=== PATIENT | male | born 1950 | race African-American/Black ===

== ENCOUNTER 2020-04-28 14:05 | Emergency (ER) | payer MEDICARE, MEDICAID, SELFPAY ==
[~2020-04-28] VITALS: Ht 175.3 cm; Wt 77.1 kg
[2020-04-28 14:45] VITALS: BP_SYST 103
--- NOTE | 2020-04-28 14:45 | NUR ---
PT TRIAGED AND TO REMAIN IN TENT 3 FOR EVALUATION
--- NOTE | 2020-04-28 14:50 | NUR ---
CREPING MACHINE OPERATOR EILEEN CALLED PER PT REQUEST FOR AVAILABLE RESOURCES
--- NOTE | 2020-04-28 16:16 | NUR ---
Super[facility] Note/Homeless Patient referred to [facility] by ED RN Tasha as patient is homeless and needs halfway. Met with patient in the outside ED tent. Patient stated he needed to place to stay. He has been trying to get into the [facility] hotel but has been "blocked". These are rooms set up for Covid isolation. Will provide ED staff with the Quarantine and Isolation Intake Call Center contact information flyer and phone [phone]. I'm currently on hold with the year round halfway hotline [phone] to determine what they have available. Addendum: 04/28/20 at 1718 by Rabia James LCSW Unable to reach the halfway hot line. Will follow up in the am if patient is still here.
--- NOTE | 2020-04-28 18:30 | NUR ---
RAPID COVID SWAB OBTAINED AND SENT
--- NOTE | 2020-04-28 20:23 | NUR ---
SPOKE WITH DINAH AT [facility] AND COMPLETED INTAKE PROCESS. PT MUST WAIT TIL 8 AM FOR TRANSFER. CALL [facility] INTAKE C[facility] IN AM @ [phone] TO DETERMINE PLACEMENT AND COORDINATE WITH SITE MANAGERS AND EMS TRANSPORT. CALL EILEEN SCALE CLERK ALBERT GU AT EXT #[phone] TO ASSIST WITH TRANSFER. PACKET NEEDS TO BE FAXED WHEN NURSE MAKES CONTACT IN MORNING. FAX MUST INCLUDE V/S, D/C SUMMARY, H & P, PROGRESS NOTES, NURSING NOTES, AND COVID POSITIVE RESULT.
--- NOTE | 2020-04-28 20:23 | NUR ---
REFERENCE NUMBER FOR [facility] INTAKE COORDINATION #[id number]
--- NOTE | 2020-04-28 21:30 | NUR ---
PT PLACED IN ED BROWN TENT SINCE COVID POSITIVE VITAL SIGNS STABLE WILL CONTINUE TO MONITOR
--- NOTE | 2020-04-28 23:00 | NUR ---
PT RESTING QUIETLY IN BED VITAL SIGNS STABLE WILL CONTINUE TO MONITOR
[2020-04-29] MEDS ORDERED: COLCHICINE 0.6 MG TABLET ONE (00:17)
[2020-04-29] MEDS ORDERED: KETOROLAC TROMETHAMINE 60 MG/2 ML VIAL IM ONE (06:00)
--- NOTE | 2020-04-29 07:14 | NUR ---
BEDSIDE PT REPORT GIVEN TO ELECTROSLAG WELDING MACHINE OPERATORBETSY TITUS WHO WILL ASSUME CARE
--- NOTE | 2020-04-29 07:30 | NUR ---
Report received at this time, pt A&Ox,VSS , O2 95%, BS 77, breakfast ordered, afebrile, will cont to monitor.
--- NOTE | 2020-04-29 08:45 | NUR ---
Structural Rigger Note Spoke with ED. Patient is Covid positive and homeless. They phoned the Quarantine and Isolation Intake Call Center [phone] and received ticket #[id number]. Abby from the Intake Center called, . She will work to find a place for patient, with preference to the [facility] in [place]. Vital signs reported to Abby. No prescriptions. When transport needed, must be ambulance due to positive Covid status. Will call [facility] [place] [phone]. Addendum: 04/29/20 at 0923 by Rabia James LCSW Faxed patient's information to the [facility] intake in [place], . Left my cell number for contact. Addendum: 04/29/20 at 0940 by Rabia James LCSW Received a call from aPulina MEYER from [facility], . She stated they need lab results for patient. Phoned ED to request labs Addendum: 04/29/20 at 1144 by Rabia COATSW Paulina also requested O2 sat while ambulatory and chest x ray. Daina DEY alerted ED.
[2020-04-29 10:18] LABS: BASOPHILS % (AUTO) 0.7 % (0.0-2.0); HEMATOCRIT 42.6 % (36-54); HEMOGLOBIN 14.1 g/dL (14.0-18.0); LYMPHOCYTES % (AUTO) 23.6 % (20.5-51.5); MEAN CORPUSCULAR HEMOGLOBIN 27 pg (27-31); MEAN CORPUSCULAR HGB CONC 33 % (32-36); MEAN CORPUSCULAR VOLUME 82 fL (79.0-98.0); MONOCYTES # (AUTO) 0.5 K/uL (0.0-1.0); MONOCYTES % (AUTO) 10.6 % (1.7-9.3); NEUTROPHILS # (AUTO) 2.9 K/uL (1.8-7.7); NEUTROPHILS % (AUTO) 65.1 % (40.0-70.0); PLATELET COUNT (AUTO) 183 K/uL (130-430); RED CELL DISTRIBUTION WIDTH 14.7 % (9.0-15.0); WHITE BLOOD COUNT (AUTO) 4.4 K/uL (4.8-10.8)
[2020-04-29 10:36] LABS: CALCIUM 8.7 mg/dL (8.4-11.0); CREATININE 1.09 mg/dL (0.55-1.30); POTASSIUM 3.8 mmol/L (3.5-5.1)
--- NOTE | 2020-04-29 11:15 | NUR ---
Pt on stable condition, O2 95 %, respirations even and unlabored.
--- NOTE | 2020-04-29 11:35 | NUR ---
PT AMBULATED WITH SATS MAINTAINING AT 96%, PT ON ROOM AIR. NO SOB OR DYSPNEA
--- NOTE | 2020-04-29 13:30 | NUR ---
Pt resting in [facility] comfortably at this time
--- NOTE | 2020-04-29 13:39 | NUR ---
Discharge/Monkey Breeder Note All requested documents were faxed to Kimi Sullivan RN, . Paulina RN confirmed [phone]. Abby, , called and patient is accepted. Phoned [facility]. Patient's Medicare does not cover ambulance. [facility]. The would not provide an ETA. Phoned [facility], . Kenn provided ETA of 15:15. Notified Abby of ETA. They are waiting for patient Notified Lilibeth in ED of ambulance ETA.
[2020-04-29 15:55] VITALS: BP_SYST 118
--- NOTE | 2020-04-29 15:56 | NUR ---
Patient given written and verbal discharge instructions and verbalizes understanding. ER MD discussed with patient the results and treatment provided. Patient in stable condition. ID arm band removed. No Rx of given. Patient educated on pain management and to follow up with PMD. Pain Scale 0/10. Opportunity for questions provided and answered. Medication side effect fact sheet provided.
== END 2020-04-29 15:55 | disposition home or self-care (01) ==
LOC: SED 14:05
DX: U07.1 COVID-19 (principal); I11.0 Hypertensive heart disease with heart failure; I50.9 Heart failure, unspecified; E78.5 Hyperlipidemia, unspecified
CPT/HCPCS: 36415; 71045; 80048; 85025; 87426; 99285; J1885